=== PATIENT | female | born 2000 | race Caucasian/White ===

== ENCOUNTER 2023-03-12 12:44 | Emergency (ER) | payer OTHER ==
[2023-03-12] MEDS ORDERED: Lidocaine 1% w/Epinephrine 1:200K 30 ML VIAL ONE (13:06)
[2023-03-12] MEDS ORDERED: Ketorolac Tromethamine 30 MG (1 mL) VIAL ONE (13:32)
[2023-03-12] MEDS ORDERED: Dexamethasone 10 MG/ML VIAL ONE (13:32)
[2023-03-12] MEDS ORDERED: Ondansetron ODT 4 MG TAB ONE (13:32)
[2023-03-12] MEDS ORDERED: Amoxicillin/Potassium Clav 875 MG TAB ONE (13:32)
== END 2023-03-12 13:37 | disposition home or self-care (01) ==
LOC: CSHERS 12:44
DX: J36 Peritonsillar abscess (principal)
CPT/HCPCS: 10060; J1100; J1885; Q0162